=== PATIENT | female | born 1985 | race Caucasian/White ===

== ENCOUNTER 2021-12-10 20:41 | Emergency (ER) | payer BC ==
[2021-12-10] MEDS ORDERED: Sodium Chloride 0.9% 10 ML Syringe FLUSH PRN (20:58)
[2021-12-10] MEDS ORDERED: Sodium Chloride 0.9% 2.5 ML Syringe FLUSH PRN (20:58)
[2021-12-10 22:00] LABS: CARBON DIOXIDE,CO2 27.8 mmol/L (21.0-32.0); POTASSIUM,K 3.5 mmol/L (3.5-5.1)
[2021-12-10] MEDS ORDERED: Iopamidol 755 MG/ML 500 ML Multipack Bottle IVPUSH STA (22:48)
[2021-12-10] MEDS ORDERED: Ondansetron 4 MG/2 ML SDV IVPUSH ONE (23:20)
[2021-12-10] MEDS ORDERED: Acetaminophen 325 MG Tab PO ONE (23:20)
[2021-12-10] MEDS ORDERED: Cephalexin 500 MG Cap PO ONE (23:45)
[2021-12-11 00:01] VITALS: BP 97/61; PULSE 87
== END 2021-12-11 | disposition home or self-care (01) ==
LOC: MW.ED 20:41
DX: N39.0 Urinary tract infection, site not specified (principal); Z88.5 Allergy status to narcotic agent
CPT/HCPCS: 36415; 74177; 80053; 81001; 81025; 83690; 85025; 96374; 99284; A9270; J2405; J3490; Q9967; 99283